=== PATIENT | female | born 1975 | race African-American/Black ===

== ENCOUNTER → 2017-06-22 | Outpatient (CLI) | payer OTHER ==
--- NOTE | 2017-06-22 15:49 | RAD ---
DATE: 06/22/2017 EXAM: DIGITAL DIAGNOSTIC BILATERAL, BREAST RIGHT HISTORY: Right breast thickening COMPARISON: Baseline study This study was interpreted with the benefit of Computerized Aided Detection (CAD). The breast parenchyma shows scattered fibroglandular densities. Breast parenchyma level B. FINDINGS: A BB was placed on the skin surface of the over the area of reported palpable concern near the 12:30 location in the right breast. Digital mammography was performed in CC and MLO projections. Additional straight mediolateral and 3-D CC and MLO views of the right breast were also obtained. There are scattered fibroglandular opacities in both breasts. There are asymmetric patchy densities present in the right breast posteriorly in the area of palpable concern at the 12:30 location. This process is best seen on CC tomogram image #50. This process appears to be partially circumscribed on this image, measuring 3.8 cm in greatest diameter. There are fatty densities internally. The appearance suggests a fibroadenolipoma. It is also visible on oblique tomogram #44. No other unusual breast densities are seen. No suspicious microcalcifications are evident. Right breast ultrasound, 06/22/2017: A targeted ultrasound exam of the right breast was performed in the area of concern centered at the 12:00 location. Heterogeneous fibroglandular shadows are present. No cystic or solid breast mass is seen. No hypoechoic mass or suspicious density is seen. The suspected fibroadenolipoma is presumably blending into the other fibrous and fatty tissues and is not visible as a discrete mass sonographic. 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 There are no mammographic findings to suggest malignancy. Follow-up right 3-D mammography in 6 months followed by bilateral mammography at yearly intervals is suggested to confirm stability. BI-RADS CATEGORY: 3 PROBABLY BENIGN FINDING(S)-SHORT INTERVAL FOLLOW-UP SUGGESTED RECOMMENDED FOLLOW-UP: 6M 6 MONTH FOLLOW-UP PQRS compliance statement: Patient information was entered into a reminder system with a target due date for the next mammogram. Mammography is a sensitive method for finding small breast cancers, but it does not detect them all and is not a substitute for careful clinical examination. A negative mammogram does not negate a clinically suspicious finding and should not result in delay in biopsying a clinically suspicious abnormality. "Our facility is accredited by the [employer] Mammography Program."
== END | disposition home or self-care (01) ==
LOC: MAMMO 13:53
PROVIDERS: ATTEND Nurse Practitioner Family
DX: N63 Unspecified lump in breast (principal); N64.59 Other signs and symptoms in breast
CPT/HCPCS: 76641; G0204; 77066